=== PATIENT | female | born 2000 ===

== ENCOUNTER 2021-08-17 05:13 | Emergency (ER) | payer SELFPAY ==
--- OUTSIDE RECORDS SUMMARY | 2021-08-17 05:17 | XMS REPORT | Continuity of Care Document ---
:2000 Author Organization [facility] t Address [address] [place] [address] Care Team Providers Name Role Phone Unavailable Unavailable Unavailable Payers Payer Name Policy Type Policy Number Effective Date Expiration Date S ource Problems This patient has no known problems. Allergies, Adverse Reactions, Alerts Allergy Allergy Status Severity Reaction(s) Onset Inactive Treating Comm ents Source Name Type Date Date Clinician No Known DA Active U [facility] 04[facility]02 [facility] Medications This patient has no known medications. Procedures This patient has no known procedures. Results Test Description Test Time Test Comments Results Result [facility] e Comments - CT ABD PELVIS 2019-05-18 Name: RICA LOCKHART W/O CONT 06:14:00 [facility] : 2000 Age/S: 19 / F [address] [place] [address] Unit #: [id number] Loc: [place] [address] Phys: Kamari Roach MD Acct: [id number] Dis Date: Status: REG ER PHONE #: [phone] Exam Date: 05/18/2019 0555 FAX #: [phone] Reason: NAUSEA/VOMITING, PERIUMBILICAL PAIN. R/O ACUTE EXAMS: CPT CODE: [id number] CT ABD PELVIS W/O CONT 57582 CT abdomen and pelvis without IV contrast. Indication: Nausea vomiting and periumbilical pain Location: R16 Comparison: None available Technique: CT images of the abdomen and pelvis were obtained from the diaphragm to the pubic symphysis without the administration of intravenous contrast contrast. Coronal reformats are provided. One or more of the following dose reduction techniques were used: Automated exposure control, adjustment of the mA and/or kV according to patient size, and/or utilization of iterative reconstruction technique. Findings: Lungs bases: Unremarkable. Liver: Noncontrast appearance is unremarkable. Gallbladder: Noncontrast appearance is unremarkable. Pancreas: Noncontrast appearance is unremarkable. Spleen: Noncontrast appearance is unremarkable. Adrenal glands: Noncontrast appearance is unremarkable. Kidneys: Noncontrast appearance is unremarkable the exception of a right renal cyst Bowel: No bowel obstruction. The appendix is unremarkable. A large volume of stool seen throughout the colon. Peritoneum: No ascites. No free air Skeletal: No acute fracture.. Impression: Although limited by the absence of IV contrast, no definite acute abnormality is seen within the abdomen and pelvis to the patient's symptomology with exception of likely constipation Additional findings as detailed above PAGE 1 Signed Report (CONTINUED) Name: RICA LOCKHART [facility] : 2000 Age/S: 19 / F [address] [facility] Unit #: [id number] Loc: [place] [address] Phys: Kamari Roach MD Acct: [id number] Dis Date: Status: REG ER PHONE #: [phone] Exam Date: 05/18/2019554 FAX #: [phone] Reason: NAUSEA/VOMITING, PERIUMBILICAL PAIN. R/O ACUTE EXAMS: CPT CODE: [id number] CT ABD PELVIS W/O CONT 96304 <Continued> at 0614 Reported and signed by: DOUG SOLIS M.D. CC: Kamari Roach MD Technologist:RT Fay(R) CT CTDI: 10.49 DLP: 581.17 Trnscb Date/Time: 05/18/2019 (613) [email or web address] Orig Print D/T: S: 05/18/2019 (0617) PAGE 2 Signed Report - US ABDOMEN LTD 2019-05-18 FAX: 05:19:00 Kamari Roach [place]: [address]: REG Name: RICA LOCKHART [facility] : 2000 Age/S: 19/F [address] [facility] Unit #: [id number] Loc: [place] [address] Phys: Kamari Roach MD Acct: [id number] Dis Date: Status: REG ER PHONE #: [phone] Exam Date: 05/18/2019 050 FAX #: [phone] Reason: RUQ PAIN EXAMS: CPT CODE: [id number] US ABDOMEN LTD 72892 ULTRASOUND: - US ABDOMEN LTD History: RUQ PAIN Comparison: Vomiting. Findings: The limitedly visualized portion of the liver has relatively unremarkable echogenicity. No intrahepatic ductal dilation is seen. No cholelithiasis is seen. There is no gallbladder wall thickening or pericholecystic free fluid The common bile duct measures 4 mm The pancreas is incompletely visualized. The right kidney measuring 10.9 cm there is no hydronephrosis. Visualized portions of the aorta and IVC are normal. Impression: No sonographic evidence of acute cholecystitis at 0519 Reported and signed by: DOUG SOLIS M.D. CC: Kamari Roach MD Technologist: Ricardo Meza RDMS Trnscrd Date/Time/By: 05/18/2019 (05) : By: [email or web address] Orig Print D/T: S: 05/18/2019 (0520) PAGE 1 Signed Report URINALYSIS W REFLEX MICRO 2019-05-18 04:23:00 Test Item Value Reference Range Interpretation Comme nts UA COLOR (test code = COLU) Yellow YELLOW UA APPEARANCE (test code = APPU) CLEAR CLEAR UA GLUCOSE DIPSTICK (test code = DGLUU) NORMAL mg/dl NORMAL UA BILIRUBIN DIPSTICK (test code = BILU) NEGATIVE mg/dl NEGATIVE UA KETONE DIPSTICK (test code = KETU) 20 mg/dl NEGATIVE A UA SPECIFIC GRAVITY (test code = SGU) 1.026 1.001-1.035 N UA BLOOD DIPSTICK (test code = VAUGHN) LARGE /UL NEGATIVE A UA PH DIPSTICK (test code = RACQUEL) 6.0 4.6-8.0 UA PROTEIN DIPSTICK (test code = PROU) 100 mg/dl NEGATIVE A UA UROBILINIOGEN DIPSTICK (test code = URO) NORMAL mg/dl NORMAL UA NITRITE DIPSTICK (test code = DEBRA) NEGATIVE NEGATIVE UA LEUKOCYTE ESTERASE DIPSTICK (test code = LEUU) NEGATIVE /UL NEGA TIVE UA COMMENT (test code = COMU) CLN CATCH UA WBC (test code = WBCU) 3-5 #/hpf 0-5 UA RBC (test code = RBCU) 26-50 #/hpf 0-5 A UA EPITHELIAL CELLS (test code = EPIU) FEW /hpf NEG,FEW UA BACTERIA (test code = BACU) FEW /hpf NEGATIVE A UA MUCUS (test code = MUCU) 2+ /hpf NEG,FEW A UR HCG [id number] 04:23:00 Test Item Value Reference Range Interpretation Comments UR HCG QUAL (test code = HCGQLU) NEGATIVE NEGATIVE URINALYSIS W REFLEX [id number] 04:20:00 Test Item Value Reference Range Interpretation Comments UA COLOR (test code = COLU) YELLOW UA APPEARANCE (test code = APPU) CLEAR UA GLUCOSE DIPSTICK (test code = mg/dl NORMAL DGLUU) UA BILIRUBIN DIPSTICK (test code = mg/dl NEGATIVE BILU) UA KETONE DIPSTICK (test code = KETU) mg/dl NEGATIVE UA SPECIFIC GRAVITY (test code = SGU) 1.001-1.035 UA BLOOD DIPSTICK (test code = VAUGHN) /UL NEGATIVE UA PH DIPSTICK (test code = RACQUEL) 4.6-8.0 UA PROTEIN DIPSTICK (test code = PROU) mg/dl NEGATIVE UA UROBILINIOGEN DIPSTICK (test code = mg/dl NORMAL URO) UA NITRITE DIPSTICK (test code = DEBRA) NEGATIVE UA LEUKOCYTE ESTERASE DIPSTICK (test /UL NEGATIVE code = LEUU) UA COMMENT (test code = COMU) UR HCG [id number] 04:20:00 Test Item Value Reference Range Interpretation Comments UR HCG QUAL (test code = HCGQLU) NEGATIVE NEGATIVE COMPREHENSIVE METABOLIC [id number] 04:07:00 Test Item Value Reference Range Interpretation Comments SODIUM (test code = NA) 139 mmol/L 136-145 N POTASSIUM (test code = 3.7 mmol/L 3.5-5.1 N K) CHLORIDE (test code = 104 mmol/L 98-107 N CL) CARBON DIOXIDE (test 28 mmol/L 21-32 N code = CO2) GLUCOSE (test code = 107 mg/dL 70-100 H GLU) BLOOD UREA NITROGEN 17 mg/dL 7-18 N (test code = BUN) GLOMERULAR FILTRATION > 60.00 >=60 Report ing units: RATE (test code = GFR) mL/mi n/1.73m\S\2 (Modified MDRD formula)REFEREN CE RANGE: > or = 6 0 ml/min/1.73M2IF PATIENT IS -PACHECO N, MULTIPLY REPORT ED RESULT BY1.21. CREATININE (test code = 0.70 mg/dL 0.51-0.95 N CREAT) TOTAL PROTEIN (test 8.0 g/dl 6.4-8.2 N code = PROT) ALBUMIN (test code = 4.2 g/dl 3.4-5.0 N ALB) CALCIUM (test code = 8.8 mg/dL 8.5-10.1 N CA) BILIRUBIN TOTAL (test 0.4 mg/dl 0.2-1.0 N code = BILT) SGOT/AST (test code = 11 U/L 15-37 L AST) SGPT/ALT (test code = 18 U/L 12-78 N ALT) ALKALINE PHOSPHATASE 87 U/L 47-176 N TOTAL (test code = ALKP) [id number] 04:07:00 Test Item Value Reference Range Interpretation Comments LIPASE (test code = LIP) 112 U/L 73-393 N CBC W/AUTO [id number] 03:49:00 Test Item Value Reference Range Interpretation Comments WHITE BLOOD CELL (test code = 11.2 X10(3) 4.5-11.0 H WBC) RED BLOOD CELL (test code = 4.71 X10(6) 4.2-5.4 N RBC) HEMOGLOBIN (test code = HGB) 13.8 g/dL 12.5-16.0 N HEMATOCRIT (test code = HCT) 41.4 % 37.0-47.0 N MEAN CELL VOLUME (test code = 87.9 fl 78-100 N MCV) MEAN CELL HGB (test code = MCH) 29.3 pg 26.0-34.0 N MEAN CELL HGB CONCETRATION 33.3 g/dl 30.0-37.0 N (test code = MCHC) RED CELL DISTRIBUTION WIDTH 12.5 % 11.5-14.5 N (test code = RDW) PLATELET COUNT (test code = 177 X10(3) 150-350 N PLT) MEAN PLATELET VOLUME (test code 12.1 fl 8.7-11.4 H = MPV) NEUTROPHIL % (test code = NT%) 86.6 % 36.0-66.0 H IMMATURE GRANULOCYTE % (test 0.4 % 0.0-2.0 N code = IG%) LYMPHOCYTE % (test code = LY%) 7.7 % 16-50 L MONOCYTE % (test code = MO%) 4.0 % 0.0-13.0 N EOSINOPHIL % (test code = EO%) 1.0 % 0.0-4.5 N BASOPHIL % (test code = BA%) 0.3 % 0.0-1.5 N NUCLEATED RBC % (test code = 0.0 % 0-0.2 N NRBC%) NEUTROPHIL # (test code = NT#) 9.8 X10(3) 1.7-7.7 H IMMATURE GRANULOCYTE # (test 0.04 X10(3)uL 0.00-0.03 H code = IG#) LYMPHOCYTE # (test code = LY#) 0.9 X10(3) 0.7-4.0 N MONOCYTE # (test code = MO#) 0.5 X10(3) 0.0-0.89 N EOSINOPHIL # (test code = EO#) 0.1 X10(3) 0.0-0.6 N BASOPHIL # (test code = BA#) 0.0 X10(3) 0.0-0.2 N NUCLEATED RBC # (test code = 0.00 K/mm3 0.0-0.1 N NRBC#) BASIC METABOLIC [id number] 00:55:00 Test Item Value Reference Range Interpretation Comments SODIUM (test code = 138 mmol/L 136-145 N NA) POTASSIUM (test code = 3.8 mmol/L 3.5-5.1 N K) CHLORIDE (test code = 104 mmol/L 98-107 N CL) CARBON DIOXIDE (test 27 mmol/L 21-32 N code = CO2) GLUCOSE (test code = 107 mg/dL 70-100 H GLU) BLOOD UREA NITROGEN 15 mg/dL 7-18 N (test code = BUN) GLOMERULAR FILTRATION > 60.00 >=60 Report ing units: RATE (test code = GFR) mL/mi n/1.73m\S\2 (Modified MDRD formula)REFEREN CE RANGE: > or = 6 0 ml/min/1.73M2IF PATIENT IS -PACHECO N, MULTIPLY REPORT ED RESULT BY1.21. CREATININE (test code 0.80 mg/dL 0.51-0.95 N = CREAT) CALCIUM (test code = 8.8 mg/dL 8.5-10.1 N CA) HCG [id number] 00:55:00 Test Item Value Reference Range Interpretation Comments HCG SERUM (test <1 mIU/ml 0-6 N Values for B -hCG generally code = HCG) peak during the first trimesterand de mcdonnell slowly throughout the remainder of thepregnancy. A sharply reduced or fall ing serum B-hCG levelmay indicate an abnormal pregna ncy, and additonal clini calevaluation and follow-up m ay be appropriate. H CG rangesduring no rmal , as r eported in the literature, aresummarized below.......... ............. ............... ............. ..........Appro ximate hCG Approximate GestationalRang e mIU/mL[IU/L] Age ----- ------5 - 50 0.2 - 1 Week50 - 500 1 - 2 Dokdz551 - 5000 2 - 3 Nufat065 - 10,000 3 - 4 Week s1000 - 50,000 4 - 5 Weeks10,000 - 100,000 5 - 6 Weeks15,000 - 200,000 6 - 8 Weeks10,000 - 100,000 2 - 3 Months CBC W/AUTO [id number] 00:25:00 Test Item Value Reference Range Interpretation Comments WHITE BLOOD CELL (test code = 8.2 X10(3) 4.5-11.0 N WBC) RED BLOOD CELL (test code = 4.58 X10(6) 4.2-5.4 N RBC) HEMOGLOBIN (test code = HGB) 13.1 g/dL 12.5-16.0 N HEMATOCRIT (test code = HCT) 40.6 % 37.0-47.0 N MEAN CELL VOLUME (test code = 88.6 fl 78-100 N MCV) MEAN CELL HGB (test code = MCH) 28.6 pg 26.0-34.0 N MEAN CELL HGB CONCETRATION 32.3 g/dl 30.0-37.0 N (test code = MCHC) RED CELL DISTRIBUTION WIDTH 12.9 % 11.5-14.5 N (test code = RDW) PLATELET COUNT (test code = 214 X10(3) 150-350 N PLT) MEAN PLATELET VOLUME (test code 11.5 fl 8.7-11.4 H = MPV) NEUTROPHIL % (test code = NT%) 68.1 % 36.0-66.0 H IMMATURE GRANULOCYTE % (test 0.2 % 0.0-2.0 N code = IG%) LYMPHOCYTE % (test code = LY%) 24.4 % 16-50 N MONOCYTE % (test code = MO%) 4.2 % 0.0-13.0 N EOSINOPHIL % (test code = EO%) 2.5 % 0.0-4.5 N BASOPHIL % (test code = BA%) 0.6 % 0.0-1.5 N NUCLEATED RBC % (test code = 0.0 % 0-0.2 N NRBC%) NEUTROPHIL # (test code = NT#) 5.6 X10(3) 1.7-7.7 N IMMATURE GRANULOCYTE # (test 0.02 X10(3)uL 0.00-0.03 N code = IG#) LYMPHOCYTE # (test code = LY#) 2.0 X10(3) 0.7-4.0 N MONOCYTE # (test code = MO#) 0.3 X10(3) 0.0-0.89 N EOSINOPHIL # (test code = EO#) 0.2 X10(3) 0.0-0.6 N BASOPHIL # (test code = BA#) 0.1 X10(3) 0.0-0.2 N NUCLEATED RBC # (test code = 0.00 K/mm3 0.0-0.1 N NRBC#)
[2021-08-17 06:58] LABS: SARS-COV-2 RT PCR POSITIVE (NEGATIVE)
--- NOTE | 2021-08-17 07:07 | ER ---
Nurse's Notes [facility] Name: Marly Trejo Age: 21 yrs Sex: Female : 2000 Arrival Date: 08/17/2021 Time: 05:19 Bed Waiting Private MD: Diagnosis: Coronavirus infection, unspecified Presentation: 08/17 05:43 Chief complaint: Patient states: she has been vomiting x 1 week, with headaches, feels bb light-headed denies cough, congestion or fever. Coronavirus screen: headache, vomiting. Ebola Screen: No symptoms or risks identified at this time. Initial Sepsis Screen: Does the patient meet any 2 criteria? No. Patient's initial sepsis screen is negative. Does the patient have a suspected source of infection? No. Patient's initial sepsis screen is negative. Risk Assessment: Do you want to hurt yourself or someone else? Patient reports no desire to harm self or others. Onset of symptoms was August 11, 2021. 05:43 Method Of Arrival: Ambulatory bb 05:43 Acuity: DANYA 3 bb Triage Assessment: 05:46 General: Appears in no apparent distress. Behavior is calm, cooperative. Pain: bb Complains of pain in left lower quadrant Pain currently is 2 out of 10 on a pain scale. Neuro: Level of Consciousness is awake, alert, obeys commands, Oriented to person, place, time, situation. Cardiovascular: Capillary refill < 3 seconds Patient's skin is warm and dry. Respiratory: Respiratory effort is even, unlabored. GI: Abdomen is round Reports lower abdominal pain, vomiting. Derm: Skin is pink, warm \T\ dry. Musculoskeletal: Circulation, motion, and sensation intact. 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 - Social history:: Smoking status: Patient denies any tobacco usage or history of. Patient uses street drugs, marijuana, Patient/guardian denies using alcohol. Vital Signs: 05:43 BP 137 / 79; Pulse 62; Resp 16 S; Temp 98.1(O); Pulse Ox 100% on R/A; Weight 63.5 kg bb (R); Height 5 ft. 2 in. (157.48 cm) (R); Pain 2/10; 05:43 Body Mass Index 25.61 (63.50 kg, 157.48 cm) bb ED Course: 05:19 Patient arrived in ED. wm 05:46 Triage completed. bb 05:46 Arm band placed on Patient placed in waiting room, Patient notified of wait time. Covid bb swab sent, urine collected. 06:01 [facility] kb 06:01 Kb Barnes MD is Attending Physician. kb 07:38 Kelli Ness, RN is Primary Nurse. iw Administered Medications: 07:05 Drug: Zofran (Ondansetron) 4 mg Route: PO; iw 07:15 Follow up: Response: No adverse reaction iw Outcome: 07:06 Discharge ordered by . kb 07:39 Patient left the ED. iw Signatures: Shana Wilcox FNP-C FNP-Ckb Ballard, Brenda, RN RN bb Kelli Ness, RN RN iw Linda Harrell
[2021-08-17] MEDS ORDERED: ONDANSETRON 4 MG (ODT) TAB ONE ×2 (07:08→07:12)
--- NOTE | 2021-08-17 07:08 | EDPHYS ---
Physician Documentation [facility] Name: Marly Trejo Age: 21 yrs Sex: Female : 2000 Arrival Date: 08/17/2021 Time: 05:19 Bed Waiting Private MD: ED Physician Kb Barnes HPI: 08/17 07:05 This 21 yrs old Female presents to ER via Ambulatory with complaints of Dizziness, kb Nausea/Vomiting/Diarrhea. 07:05 The patient presents to the emergency department with nausea, vomiting, diarrhea. kb Onset: The symptoms/episode began/occurred 1 week(s) ago. Possible causes: unknown. The symptoms are aggravated by nothing. The symptoms are alleviated by nothing. Associated signs and symptoms: Pertinent positives: diarrhea, nausea, vomiting. Severity of symptoms: At their worst the symptoms were moderate in the emergency department the symptoms are unchanged. The patient has not experienced similar symptoms in the past. The patient has not recently seen a physician. Pt reports n/v/d, chills, malaise, and bodyaches for a week. . 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 - Social history:: Smoking status: Patient denies any tobacco usage or history of. Patient uses street drugs, marijuana, Patient/guardian denies using alcohol. ROS: 07:05 Respiratory: Negative for shortness of breath, cough, wheezing, and pleuritic chest kb pain. 07:05 Constitutional: Positive for body aches, chills, fatigue, malaise. 07:05 Abdomen/GI: Positive for nausea, vomiting, and diarrhea, Negative for abdominal pain. 07:05 All other systems are negative. Exam: 07:05 Constitutional: This is a well developed, well nourished patient who is awake, alert, kb and in no acute distress. Head/Face: Normocephalic, atraumatic. ENT: Moist Mucous membranes Cardiovascular: Regular rate and rhythm with a normal S1 and S2. No gallops, murmurs, or rubs. No pulse deficits. Respiratory: Respirations even and unlabored. No increased work of breathing. Talking in full sentences Abdomen/GI: Soft, non-tender. No distention Skin: Warm, dry with normal turgor. Normal color. MS/ Extremity: Pulses equal, no cyanosis. Neurovascular intact. Full, normal range of motion. Neuro: Awake and alert, GCS 15, oriented to person, place, time, and situation. Moves all extremities. Normal gait. Psych: Awake, alert, with orientation to person, place and time. Behavior, mood, and affect are within normal limits. Vital Signs: 05:43 BP 137 / 79; Pulse 62; Resp 16 S; Temp 98.1(O); Pulse Ox 100% on R/A; Weight 63.5 kg bb (R); Height 5 ft. 2 in. (157.48 cm) (R); Pain 2/10; 05:43 Body Mass Index 25.61 (63.50 kg, 157.48 cm) MDM: 07:00 Patient medically screened. kb 07:04 Data reviewed: vital signs, nurses notes. Data interpreted: Pulse oximetry: on room air kb is 100 %. Interpretation: normal. Counseling: I had a detailed discussion with the patient and/or guardian regarding: the historical points, exam findings, and any diagnostic results supporting the discharge/admit diagnosis, lab results, the need for outpatient follow up, a family practitioner, to return to the emergency department if symptoms worsen or persist or if there are any questions or concerns that arise at home. 08/17 05:50 Order name: COVID-19/FLU A+B (Document "Date of Onset" if Symptomatic); Complete Time: bb 06:59 08/17 06:10 Order name: Urine --Ancillary (enter results) mw2 08/17 05:50 Order name: Urine Dipstick-Ancillary (obtain specimen); Complete Time: 06:44 08/17 05:50 Order name: Urine Test (obtain specimen); Complete Time: 06:44 08/17 07:04 Order name: PO challenge; Complete Time: 07:35 kb Administered Medications: 07:05 Drug: Zofran (Ondansetron) 4 mg Route: PO; iw 07:15 Follow up: Response: No adverse reaction iw Disposition Summary: 08/17/21 07:06 Discharge Ordered Location: Home kb Condition: Stable kb Diagnosis - Coronavirus infection, unspecified kb Followup: kb - With: Emergency Department - When: As needed - Reason: Worsening of condition Followup: kb - With: Private Physician - When: 2 - 3 days - Reason: Recheck today's complaints, Continuance of care, Re-evaluation by your physician Discharge Instructions: - Discharge Summary Sheet kb - Viral Respiratory Infection, Ghuy-Mg-Jpyu kb - COVID-19 kb Forms: - Medication Reconciliation Form kb - Thank You Letter kb - Antibiotic Education kb - Prescription Opioid Use kb - Work release form bb Prescriptions: - Zofran 4 mg Oral Tablet - take 1 tablet by ORAL route every 6 hours As needed; 20 tablet; Refills: 0, kb Product Selection Permitted Addendum: 08/18/2021 21:41 Co-signature as Attending Physician, Kb Barnes MD. m Signatures: Dispatcher [employer] Shana Moreno, BUSHRA-Rishabh RAILWAY TRACK WORKER-Elizabeth Holland RN RN bb Williams, Irene, RN RN iw Holmes, Maurice, MD MD [id number]
[2021-08-17 07:45] VITALS: BP 137/79; TEMP 98.1; O2SAT 100
[2021-08-17] MEDS ORDERED: HEPARIN 5000 UNIT/ML 1 ML VIAL ONE (08:16)
[2021-08-17] MEDS ORDERED: PIPERACIL/TAZO 3.375 GM VIAL IV ONE (08:16)
[2021-08-17] MEDS ORDERED: NA CHLORIDE 0.9% 100 ML ONE (08:17)
[2021-08-17 09:41] LABS: Urine Specific Gravity/Preg 1.025 (1.005-1.030)
== END 2021-08-17 07:39 | disposition home or self-care (01) ==
LOC: EDBD 05:13 → ER 05:13
DX: U07.1 COVID-19 (principal)
CPT/HCPCS: 0240U; 81025; 99282; J1644; J2543